=== PATIENT | female | born 1975 | race African-American/Black ===

== ENCOUNTER 2016-09-05 06:10 | Day surgery (SDC) | payer BC, MEDICAID ==
--- NOTE | 2016-09-03 10:36 | PREOPHP ---
DATE OF ADMISSION: 09/05/2016 The patient is coming on the for a posterior repair in surgery. HISTORY OF PRESENT ILLNESS: This is a 40-year-old female 11, para 2, abortions 6, last mens trual period per patient was June 2016. The patient is perimenopause. She is having rectal pro blems with severe constipation and pelvic pressure, with no urinary symptoms, normal periods, vasomo tor symptoms for perimenopause with hot flashes, perspiration. The patient was evaluated for a post erior relaxation of the vagina with a large rectocele grade IV and she has been offered a repair on that. She does not have any urinary symptoms and no bladder issues. PAST MEDICAL HISTORY: Breast implants. ALLERGIES: HAS NO ALLERGIES. MEDICATIONS: She is on no medication. FAMILY HISTORY: Colon cancer. PHYSICAL EXAMINATION: GENERAL APPEARANCE: Good. VITAL SIGNS: Blood pressure is 112/70, pulse is 80, respirations 16. She is afebrile. She weighs 152. She is 5 feet 5 inches. HEAD AND NECK: Normal. BREASTS: With implants. No masses. CHEST: Clear. HEART: Normal sinus rhythm. BACK: Normal. ABDOMEN: Soft, nontender, no masses. GENITALIA: External genitalia with no cystocele, but rectocele grade IV. Cervix is healthy. Uteru s retroverted, flexed with possible fibroids and nonprolapsed. Adnexa are negative. Rectal examina tion with a large rectocele. DIAGNOSES: Rectocele grade IV, constipation, pelvic pain, possible fibroid uterus. PLAN: She is undergoing a posterior colporrhaphy. She has been advised of the possible risks and p ossible complications of the procedure with her alternatives and options. Written information was p rovided. She had no more questions and agreed to go ahead with the procedure with full understandin g and no more questions. Dictated By: MASSIMO LUQUE/NTS Conf#: [id number] DID#: [id number]
[2016-09-04 09:38] VITALS: BMI 22.0
[2016-09-05] VITALS (12 sets, daily range): BP systolic 97–114; BP diastolic 53–76; PULSE 59–76; RESP 12–18; Ht 165.1 cm; Wt 64.4 kg
[~2016-09-05] VITALS: Ht 165.1 cm; Wt 64.4 kg
[2016-09-05] MEDS ORDERED: LIDOCAINE 1%/EPI 30 ML INJ ONE (07:31)
[2016-09-05] MEDS ORDERED: THROMBIN 5000 UNIT VIAL ONE (07:32)
[2016-09-05] MEDS ORDERED: MIDAZOLAM 1 MG/ML 2 ML INJ ONE (08:20)
[2016-09-05] MEDS ORDERED: FENTAnyl 50 MCG/ML VIAL ONE ×2 (08:21→09:26)
--- NOTE | 2016-09-05 08:21 | HPN ---
Date/Time of Note Date/Time of Note DATE: 09/05/16 TIME: 08:21 Interval H&P Admission Note Pt. seen H&P reviewed: No system changes MASSIMO DAMON MD Sep 05, 2016 08:21
[2016-09-05] MEDS ORDERED: HYDROmorphONE (0.2 MG/ML) 10ML SYG IV PRN (09:30)
[2016-09-05] MEDS ORDERED: MEPERIDINE 25 MG INJ IV PRN (09:30)
[2016-09-05] MEDS ORDERED: ONDANSETRON 4 MG INJ IV PRN (09:30)
[2016-09-05] MEDS ORDERED: DIPHENHYDRAMINE 50 MG INJ IV PRN (09:30)
[2016-09-05] MEDS ORDERED: FENTAnyl 50 MCG/ML VIAL IV PRN (09:30)
[2016-09-05] MEDS ORDERED: PROPOFOL 20 ML ONE (09:36)
[2016-09-05] MEDS ORDERED: LIDOCAINE 2% (SDV) 5 ML INJ ONE (09:36)
[2016-09-05] MEDS ORDERED: CEFAZOLIN 1 GM INJ ONE (09:36)
[2016-09-05] MEDS ORDERED: ONDANSETRON 4 MG INJ ONE ×2 (09:36→09:40)
[2016-09-05] MEDS ORDERED: HYDROmorphONE (0.2 MG/ML) 10ML SYG IV ONE (09:40)
[2016-09-05] MEDS ORDERED: MEPERIDINE 25 MG INJ ONE (09:40)
--- NOTE | 2016-09-05 09:43 | OPR ---
Date/Time of Note Date/Time of Note DATE: 09/05/16 TIME: 09:42 Operative Report Procedure Date: Sep 05, 2016 Preoperative Diagnosis Large Rectocele Postoperative Diagnosis same Operation Performed Posterior repair Surgeon: MASSIMO DAMON MD Anesthesia: general Anesthesiologist: LING HENRIQUEZ MD Estimated Blood Loss: minimal Complications: None Pt Condition Post Procedure: stable Disposition: PACU MASSIMO DAMON MD Sep 05, 2016 09:43
--- NOTE | 2016-09-05 09:45 | PD.PPDC ---
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
[2016-09-05] MEDS: HYDROmorphONE (0.2 MG/ML) 10ML SYG IV PRN ×5 (09:47→10:44)
[2016-09-05] MEDS ORDERED: KETOROLAC 30 MG INJ IV PRN (10:00)
--- NOTE | 2016-09-05 10:34 | OPR ---
DATE OF OPERATION: 09/05/2016 OPERATION PERFORMED: Posterior colporrhaphy. PREOPERATIVE DIAGNOSES: Large rectocele and constipation. POSTOPERATIVE DIAGNOSES: Large rectocele and constipation. SURGEON: Dr. Aguilar ANESTHESIA: General. ANESTHESIOLOGIST: Dr. Posey. DESCRIPTION OF PROCEDURE: The patient was given general anesthesia and placed in the lithotomy posi tion. The perineal and vaginal area were prepped and draped and a Berg catheter was placed in the bladder. A triangular incision was made at the perineum and the skin was removed. The vaginal entr ance and vaginal posterior wall was injected with Xylocaine and epinephrine all the way up to about 7 cm up the vaginal canal. The rectocele was from the posterior vaginal mucosa and reduce d with interrupted sutures with 2-0 Vicryl pop-offs. The excess vaginal mucosa was trimmed and the vaginal mucosa was closed with interrupted sutures with 2-0 Vicryl. At the perineal area the levato r ani were tucked from one side to the other side with a #0 Vicryl and good approximation of the per ineal muscles were obtained of the levator ani. A good lifting of the perineum was observed. The r est of the perineum was closed as a regular episiotomy with 2-0 Vicryl and 3-[address] essing was placed. The patient tolerated the procedure well and left the OR awake and stable. Spong e counts and instrument counts were correct. Intravenous antibiotics were given for prophylaxis. B lood loss was minimal. Dictated By: MASSIMO LUQUE/JOSE Conf#: [id number] DID#: [id number]
== END 2016-09-05 15:40 | disposition home or self-care (01) ==
LOC: SDS 06:10
PROVIDERS: ATTEND Obstetrics & Gynecology
DX: N81.6 Rectocele (principal); R23.4 Changes in skin texture
CPT/HCPCS: 88305; J0690; J1170; J1885; J2175; J2250; J2405; J3010